=== PATIENT | female | born 1995 | race Two or more races ===

== ENCOUNTER 2024-02-26 10:58 | Emergency (ER) | payer OTHER ==
[~2024-02-26] VITALS: Ht 157.5 cm; Wt 59.0 kg
[2024-02-26] MEDS ORDERED: PRENATAL + DHA1 EAC1 PO (11:41)
[2024-02-26] MEDS ORDERED: CIPRO HC OTIC S10 ML OT (14:08)
== END 2024-02-26 14:18 | disposition home or self-care (01) ==
LOC: ER 11:00
DX: H61.20 Impacted cerumen, unspecified ear (principal)